=== PATIENT | female | born 1940 | race African-American/Black ===

== ENCOUNTER 2020-01-07 10:51 | Inpatient (IN) | payer MEDICARE ==
[~2020-01-07] VITALS: Ht 166.4 cm; Wt 86.4 kg
[2020-01-07] MEDS ORDERED: IPRATROPIUM BROMIDE (0.02%) 0.5MG/2.5ML NEB HHN STA (11:41)
[2020-01-07] MEDS ORDERED: METHYLPREDNISOLONE SOD SUCC 125 MG/2 ML VIAL IV STA (11:41)
[2020-01-07] MEDS ORDERED: ALBUTEROL (0.083%) 2.5MG/3ML NEB HHN STA (11:41)
[2020-01-07] MEDS ORDERED: ASPIRIN 81MG TABLET PO ONE (11:45)
[2020-01-07 12:20] LABS: BASOPHILS % 0.5 % (0.0-2.0); HEMATOCRIT. 38.5 % (36.0-48.0); HEMOGLOBIN. 12.9 g/dL (12.0-16.0); LYMPHOCYTES % 33.3 % (20.0-50.0); MEAN CORPUSCULAR HEMOGLOBIN 30.4 pg (28.0-32.0); MEAN CORPUSCULAR VOLUME 90.8 fL (81.0-99.0); MEAN PLATELET VOLUME 8.9 fl (7.4-10.4); MONOCYTES % 6.7 % (2.0-8.0); NEUTROPHILS % 55.5 % (40.0-76.0); PLATELET 162 x1000/uL (130-400); RED BLOOD CELL COUNT 4.24 mill/uL (4.2-5.4); RED CELL DISTRIBUTION WIDTH 13.5 % (11.6-14.6)
[2020-01-07 12:26] LABS: CHLORIDE 105 mEq/L (98-107)
[2020-01-07] MEDS ORDERED: NITROGLYCERIN OINT 1GM/INCH UDPKT TD ONE (13:00)
[2020-01-07] MEDS ORDERED: FUROSEMIDE 40MG/4ML VIAL IV ONE (13:00)
[2020-01-07] MEDS ORDERED: DEXTROSE 50% WATER 50ML SYRINGE IV PRN (14:45)
[2020-01-07] MEDS ORDERED: BENZONATATE 100MG CAPSULE PO PRN (14:45)
[2020-01-07] MEDS ORDERED: ONDANSETRON HCL 4MG/2ML INJ IV PRN (14:45)
[2020-01-07 16:53] LABS: HEPATITIS B SURFACE ANTIGEN NEGATIVE
[2020-01-07 17:23] LABS: HEPATITIS A AB IGM NEGATIVE (NEGATIVE)
[2020-01-07] MEDS: FUROSEMIDE 40MG/4ML VIAL IVP SCH (19:10)
[2020-01-07] MEDS: BLOOD SUGAR DIAGNOSTIC STRIP TEST SCH ×2 (19:56→22:15)
[2020-01-07] MEDS: INSULIN LISPRO 100 UNITS/ML SUBCUT SCH ×2 (20:11→22:25)
[2020-01-07 22:00] VITALS: BP 125/67
[2020-01-07] MEDS: METHYLPREDNISOLONE SOD SUCC 40 MG/ML VIAL IV SCH (22:25)
[2020-01-07] MEDS: AMLODIPINE 5MG TABLET PO SCH (22:26)
[2020-01-07] MEDS: ACETAMINOPHEN 325MG TABLET PO PRN (23:19)
[2020-01-08] VITALS: BP 148/40
[2020-01-08] MEDS ORDERED: CARV3.1242 MT (01:14)
[2020-01-08] MEDS ORDERED: ATOR40TA70 MT (01:14)
[2020-01-08] MEDS ORDERED: GLIP10TA10 MT (01:14)
[2020-01-08] MEDS ORDERED: ASPI-1497 MT (01:14)
[2020-01-08] MEDS ORDERED: FURO20TA4 MT (01:15)
[2020-01-08] MEDS ORDERED: KDUR10 PO (01:15)
[2020-01-08] MEDS ORDERED: LOSA50TA41 MT (01:15)
[2020-01-08 04:00] VITALS: BP 133/55
[2020-01-08] MEDS: METHYLPREDNISOLONE SOD SUCC 40 MG/ML VIAL IV SCH ×3 (06:24→21:20)
[2020-01-08] MEDS: BLOOD SUGAR DIAGNOSTIC STRIP TEST SCH ×4 (06:26→21:20)
[2020-01-08] MEDS: INSULIN LISPRO 100 UNITS/ML SUBCUT SCH ×4 (06:31→21:29)
[2020-01-08 08:00] VITALS: BP 99/51
[2020-01-08] MEDS: FUROSEMIDE 40MG/4ML VIAL IVP SCH ×2 (08:42→17:20)
[2020-01-08] MEDS: AMLODIPINE 5MG TABLET PO SCH (08:42)
[2020-01-08 12:00] VITALS: BP 116/63
[2020-01-08] MEDS: ACETAMINOPHEN 325MG TABLET PO PRN (13:56)
[2020-01-08 15:22] LABS: *AMPHETAMINES SCREEN URINE NEGATIVE (NEGATIVE); *BARBITURATES SCREEN URINE NEGATIVE (NEGATIVE); *BENZODIAZEPINES SCREEN URINE NEGATIVE (NEGATIVE); *COCAINE SCREEN URINE NEGATIVE (NEGATIVE); METHADONE URINE SCREEN NEGATIVE (NEGATIVE); OPIATES URINE SCREEN NEGATIVE (NEGATIVE)
[2020-01-08 15:23] LABS: CANNABINOID URINE SCREEN NEGATIVE (NEGATIVE); PHENCYCLIDINE URINE SCREEN NEGATIVE (NEGATIVE)
[2020-01-08 16:00] VITALS: BP 124/77
[2020-01-08] MEDS: ASPIRIN 81MG TABLET PO SCH (16:20)
[2020-01-08] MEDS: OMEPRAZOLE 20MG CAPSULE EXTENDED RELEASE PO SCH (16:21)
[2020-01-08] MEDS: IPRATROPIUM/ALBUTEROL 0.5-3(2.5)MG/3ML NEB HHN SCH (17:12)
[2020-01-08] MEDS ORDERED: CLONIDINE 0.1MG TABLET PO PRN (17:15)
[2020-01-08] MEDS: LOSARTAN POTASSIUM 50 MG TABLET PO SCH (17:24)
[2020-01-08 20:00] VITALS: BP 109/64
[2020-01-08] MEDS: CARVEDILOL 3.125 MG TABLET PO SCH (21:20)
[2020-01-08] MEDS: INSULIN GLARGINE UD 100 UNITS/ML SYR SUBCUT SCH (21:29)
[2020-01-09] VITALS: BP 116/69
[2020-01-09 04:00] VITALS: BP 134/75
[2020-01-09] MEDS: BLOOD SUGAR DIAGNOSTIC STRIP TEST SCH ×2 (06:08→12:36)
[2020-01-09] MEDS: METHYLPREDNISOLONE SOD SUCC 40 MG/ML VIAL IV SCH (06:15)
[2020-01-09] MEDS: INSULIN LISPRO 100 UNITS/ML SUBCUT SCH ×4 (06:16→12:49)
[2020-01-09 07:09] LABS: HEMATOCRIT. 38.7 % (36.0-48.0); HEMOGLOBIN. 12.9 g/dL (12.0-16.0); MEAN CORPUSCULAR HEMOGLOBIN 30.1 pg (28.0-32.0); MEAN CORPUSCULAR VOLUME 90.1 fL (81.0-99.0); MEAN PLATELET VOLUME 9.5 fl (7.4-10.4); PLATELET 167 x1000/uL (130-400); RED BLOOD CELL COUNT 4.29 mill/uL (4.2-5.4); RED CELL DISTRIBUTION WIDTH 13.6 % (11.6-14.6)
[2020-01-09 07:24] LABS: CHLORIDE 104 mEq/L (98-107)
[2020-01-09 08:00] VITALS: BP 104/74
[2020-01-09] MEDS: IPRATROPIUM/ALBUTEROL 0.5-3(2.5)MG/3ML NEB HHN SCH ×3 (08:43→16:27)
[2020-01-09] MEDS: CARVEDILOL 3.125 MG TABLET PO SCH (09:00)
[2020-01-09] MEDS: INSULIN GLARGINE UD 100 UNITS/ML SYR SUBCUT SCH (09:35)
[2020-01-09] MEDS: ASPIRIN 81MG TABLET PO SCH (09:39)
[2020-01-09] MEDS: FUROSEMIDE 40MG/4ML VIAL IVP SCH (09:39)
[2020-01-09] MEDS: OMEPRAZOLE 20MG CAPSULE EXTENDED RELEASE PO SCH (09:39)
[2020-01-09] MEDS: LOSARTAN POTASSIUM 50 MG TABLET PO SCH (09:39)
[2020-01-09] MEDS ORDERED: IPRA3AMP9 NEB (12:37)
[2020-01-09 14:15] VITALS: BP 135/77
[2020-01-09 14:38] LABS: ATYPICAL LYMPHOCYTES 1
[2020-01-09 14:39] LABS: PLATELET ESTIMATE NORMAL
[2020-01-09] MEDS ORDERED: INSULIN GLARGINE UD 100 UNITS/ML SYR SUBCUT SCH (22:00)
[2020-01-10] MEDS ORDERED: PREDNISONE 20MG TABLET PO SCH (07:15)
== END 2020-01-09 16:25 | disposition home or self-care (01) | DRG 291 ==
LOC: ER 11:24 → 5WST 14:27 → ENRESERV 19:56
PROVIDERS: ADMIT Internal Medicine; ATTEND Internal Medicine
DX: I11.0 Hypertensive heart disease with heart failure (principal); I50.21 Acute systolic (congestive) heart failure; J44.0 Chronic obstructive pulmonary disease with (acute) lower respiratory infection; J44.1 Chronic obstructive pulmonary disease with (acute) exacerbation; J45.901 Unspecified asthma with (acute) exacerbation; E11.65 Type 2 diabetes mellitus with hyperglycemia; E66.9 Obesity, unspecified; I16.0 Hypertensive urgency; I27.20 Pulmonary hypertension, unspecified; R74.0 Nonspecific elevation of levels of transaminase and lactic acid dehydrogenase [LDH]; J20.9 Acute bronchitis, unspecified; Z68.31 Body mass index [BMI] 31.0-31.9, adult; Z79.899 Other long term (current) drug therapy; Z79.82 Long term (current) use of aspirin; Z71.89 Other specified counseling
CPT/HCPCS: 36415; 71045; 80048; 80053; 80061; 80305; 82962; 83036; 83880; 84443; 84484; 85025; 86705; 86709; 86803; 87340; 93005; 93306; 94640; 94644; 99285; J1815; J1940; J2920; J2930

== ENCOUNTER 2021-04-21 08:05 | Emergency (ER) | payer MEDICARE ==
[~2021-04-21] VITALS: Ht 167.6 cm; Wt 73.0 kg
[~2021-04-21 08:05] MED LIST: ASPI-1497 MT; ATOR40TA70 MT; CARV3.1242 MT; FURO20TA4 MT; GLIP10TA10 MT; IPRA3AMP9 NEB; KDUR10 PO; LOSA50TA41 MT
[2021-04-21] MEDS ORDERED: CEFTRIAXONE 1 G PREMIX 50 ML IV ONE (08:15)
[2021-04-21] MEDS ORDERED: SODIUM CHLORIDE 0.9% 1000ML BAG (SEPSIS BOLUS) IV ONE (08:15)
[2021-04-21 09:04] LABS: BG BASE EXCESS 0.2 mmol/L (-2.0-2.0); BG CARBOXYHEMOGLOBIN 0.4 % (0.5-1.5); BG FRACTION INSPIRED OXYGEN 100; BG HCO3 ACT 21.5 mmol/L (22.0-26.0); BG METHEMOGLOBIN 0.2 % (0.0-1.5); BG OXYHEMOGLOBIN 98.4 % (94.0-97.0); BG PCO2 26.7 mmHg (35.0-45.0); BG PH 7.524 (7.350-7.450); BG PO2 173.5 mmHg (75.0-100.0); BG SAMPLE SITE RIGHT RADIAL; BG TOTAL HEMOGLOBIN 14.3 g/dL (12.0-18.0); BG VENT MODE MASK - NRB
[2021-04-21] MEDS ORDERED: AZITHROMYCIN 500 MG in DEXT 5% WATER 250 ML IV STA (09:07)
[2021-04-21 09:14] LABS: BASOPHILS % 0.2 % (0.0-2.0); CHLORIDE 104 mEq/L (98-107); HEMATOCRIT. 38.9 % (36.0-48.0); HEMOGLOBIN. 13.4 g/dL (12.0-16.0); MEAN CORPUSCULAR HEMOGLOBIN 30.6 pg (28.0-32.0); MEAN CORPUSCULAR VOLUME 88.9 fL (81.0-99.0); MEAN PLATELET VOLUME 8.7 fl (7.4-10.4); MONOCYTES % 5.4 % (2.0-8.0); NEUTROPHILS % 79.4 % (40.0-76.0); PLATELET 151 x1000/uL (130-400); RED BLOOD CELL COUNT 4.38 mill/uL (4.2-5.4); RED CELL DISTRIBUTION WIDTH 12.8 % (11.6-14.6)
[2021-04-21 09:17] LABS: INR 1.1; PROTHROMBIN TIME 11.6 sec (9.6-11.0)
[2021-04-21 12:49] LABS: CLARITY URINE CLEAR (CLEAR); COLOR URINE YELLOW (YELLOW); KETONES URINE NEGATIVE (NEGATIVE); LEUKOCYTE ESTERASE URINE TRACE (NEGATIVE); NITRITE URINE NEGATIVE (NEGATIVE); OCCULT BLOOD URINE NEGATIVE (NEGATIVE); PH URINE 6.5 (4.5-8.0); PROTEIN URINE TRACE (NEGATIVE); SPECIFIC GRAVITY URINE 1.017 (1.005-1.030); UROBILINOGEN URINE 0.2 E.U./dL (0.2-1.0)
[2021-04-21 18:00] VITALS: BP 138/84
== END 2021-04-21 20:57 | disposition left against medical advice (07) ==
LOC: ER 08:10 → EDBEDREQSVC 15:09 → EDBEDREQTM 15:28 → EDBEDREQSVC 15:28 → EDBEDREQ 15:28 → EDBEDREQSVC 16:42 → CANBEDREQ 18:41 → ER 20:57
DX: J18.9 Pneumonia, unspecified organism (principal); R09.02 Hypoxemia; Z20.822 Contact with and (suspected) exposure to COVID-19; I44.7 Left bundle-branch block, unspecified; I11.0 Hypertensive heart disease with heart failure; I50.9 Heart failure, unspecified; E11.9 Type 2 diabetes mellitus without complications; I25.2 Old myocardial infarction; Z79.899 Other long term (current) drug therapy
CPT/HCPCS: 36415; 36600; 71045; 80053; 81003; 82375; 82805; 83605; 83880; 84145; 84484; 85025; 85610; 87040; 87086; 87426; 93005; 96365; 96366; 96367; 96375; 99285; J0456; J7030; J7060